=== PATIENT | female | born 1965 | race Caucasian/White ===

== ENCOUNTER 2017-02-07 13:29 | Emergency (ER) | payer OTHER ==
[~2017-02-07 13:29] MED LIST: ALPRAZOLAM PO; IRON PO; LEVAQUIN PO; LORTAB 7.5-5001 TAB PO; NEURONTIN PO
== END 2017-02-07 13:30 | disposition home or self-care (01) ==
LOC: CFTX 13:29
DX: S16.1XXA Strain of muscle, fascia and tendon at neck level, initial encounter (principal); S66.911A Strain of unspecified muscle, fascia and tendon at wrist and hand level, right hand, initial encounter; G40.909 Epilepsy, unspecified, not intractable, without status epilepticus; F17.200 Nicotine dependence, unspecified, uncomplicated; Z98.51 Tubal ligation status; W01.0XXA Fall on same level from slipping, tripping and stumbling without subsequent striking against object, initial encounter; Y92.9 Unspecified place or not applicable
CPT/HCPCS: 99283

== ENCOUNTER 2017-03-31 21:24 | Emergency (ER) | payer OTHER ==
--- NOTE | ~2017-03-31 | CR282 ---
[facility] A Service of [facility] RADIOLOGY TEXT RESULTS PATIENT: PRAMOD VALENTE LOCATION: [facility] : 61 UNIT #: [id number] AGE: [address]: Tony Paulino MD SEX: F ORDER DR: [id number] [facility] [address] [place], [place] [address] [id number] E MR#: [id number] Acc #: [id number] NAME: PRAMOD VALENTE : 1965 SEX: F STUDY DATE/TIME: 04/01/2017 0014 UNIT: [facility] ROOM: STUDY DESCRIPTION: CR Wrist Min 3 View Rt Attending Physician: Tony Paulino M.D. Ordering Physician: Tony Paulino M.D. Primary Care Physician: Sai Marcano M.D. MEDICAL IMAGING REPORT This report is preliminary unless electronic signature is present EXAM Right wrist, 04/01/2014. INDICATION Wrist pain after a fall today. FINDINGS Wrist evaluation in multiple projections shows normal mineralization of the bony structures about the wrist and satisfactory articular relationship of the radius and ulna to the proximal carpal row and of the distal carpal segments to the metacarpal bases. There is no indication of fracture or dislocation, and no soft tissue radiopaque foreign body is present. No congenital defects are apparent. IMPRESSION Normal wrist. Dictated by... Gutierrez Willis Jr., M.D. THIS IS AN ELECTRONICALLY VERIFIED REPORT Gutierrez Willis Jr., M.D. at 04/01/2017 9:14 PM SUKI/leighann TD: 04/01/2017 10:08 JOB #: [id number] MEDICAL IMAGING REPORT Page 1 of 1 COPY
== END 2017-04-01 00:50 | disposition home or self-care (01) ==
LOC: CED 21:24
DX: S64.21XA Injury of radial nerve at wrist and hand level of right arm, initial encounter (principal); F17.200 Nicotine dependence, unspecified, uncomplicated; W18.30XA Fall on same level, unspecified, initial encounter; Y92.009 Unspecified place in unspecified non-institutional (private) residence as the place of occurrence of the external cause
CPT/HCPCS: 29125; 73110; 99283

== ENCOUNTER → 2017-04-30 | Outpatient (CLI) | payer OTHER ==
[2017-04-30 20:08] LABS: HEMOGLOBIN 13.2 gm/dL (12.0-16.0); MEAN CELL VOLUME 91.3 FL (83-96); MEAN CORPUSCULAR HEMOGLOBIN 30.2 PG (28-34); MEAN PLATELET VOLUME 6.8 FL (6.5-11.5); RED BLOOD COUNT 4.39 X10e (3.90-5.30); RED CELL DISTRIBUTION WIDTH 13.2 % (11.0-15.5); WHITE BLOOD COUNT 4.9 X10e3 (4.0-10.5)
[2017-04-30 20:12] LABS: URINE APPEARANCE TURBID; URINE BILIRUBIN NEG (NEG); URINE BLOOD NEG (NEG); URINE COLOR YELLOW; URINE GLUCOSE NEG (NEG); URINE KETONE NEG (NEG); URINE LEUKOCYTE ESTERASE 1+ (NEG); URINE NITRATE NEG (NEG); URINE PROTEIN NEG (NEG); URINE SPECIFIC GRAVITY 1.025 (1.003-1.035)
[2017-04-30 20:15] LABS: U HYALINE CASTS AUWI 0-2 /[LPF]; URINE BACTERIA AUWI 1+ (NEGATIVE); URINE SQUAMOUS EPITHELIAL CELL FEW /[HPF]
[2017-04-30 20:43] LABS: ALBUMIN SERUM 4.1 g/dL (3.5-5.0); ALKALINE PHOSPHATASE 83 U/L (32-92); ALT (SGPT) 12 U/L (10-40); AST (SGOT) 18 U/L (10-42); BLOOD UREA NITROGEN 13 mg/dL (9-23); BUN/CREATININE RATIO 16.25; CARBON DIOXIDE 26 mmol/L (22-31); CHLORIDE 106 mmol/L (100-111); CREATININE SERUM 0.8 mg/dL (0.6-1.4); GLOM FILT RATE Estimated 84.2 mL/min (>60); GLUCOSE FASTING 120 mg/dL (70-110); POTASSIUM 3.9 mmol/L (3.5-5.1); PROTEIN TOTAL SERUM 7.6 g/dL (6.0-8.3); SODIUM 138 mmol/L (135-145)
[2017-04-30 20:44] LABS: BILIRUBIN,TOTAL <0.1 mg/dL (0.2-2.0)
[2017-05-04 18:12] LABS: HA AB IGM (HEPPAN) Nonreactive (()); HB CORE AB IGM (HEPPAN) Nonreactive (Nonreactive); HB S AG (HEPPAN) Nonreactive (Nonreactive); HEP C AB (HEPPAN) Reactive (Nonreactive)
== END | disposition home or self-care (01) ==
LOC: CLAB 19:35
PROVIDERS: Psychiatry & Neurology Neurology
DX: F11.20 Opioid dependence, uncomplicated (principal)
CPT/HCPCS: 80053; 80074; 81003; 84703; 85027; 86592; 87522; 87806